=== PATIENT | male | born 1965 | race Two or more races ===

== ENCOUNTER 2024-12-26 08:14 | Outpatient (CLI) | payer MEDICAID ==
[~2024-12-26 08:14] MED LIST: ALBUTEROL SULF 2.5 MG/0.5ML(0.5%) NEB SOLN ONE
[2024-12-26] MEDS ORDERED: ALBUTEROL SULF 2.5 MG/0.5ML(0.5%) NEB SOLN ONE (08:27)
== END 2024-12-26 17:00 | disposition home or self-care (01) ==
LOC: RT 08:14
PROVIDERS: ATTEND Internal Medicine Pulmonary Disease
DX: J44.9 Chronic obstructive pulmonary disease, unspecified (principal); R06.00 Dyspnea, unspecified; Z87.891 Personal history of nicotine dependence
CPT/HCPCS: 94060; 94729